=== PATIENT | female | born 1965 | race Caucasian/White ===

== ENCOUNTER 2018-08-14 23:22 | Inpatient (IN) | payer OTHER, MEDICAID ==
[~2018-08-14] VITALS: Ht 165.1 cm; Wt 155.2 kg
[2018-08-14 23:37] VITALS: Ht 165.1 cm; Wt 155.2 kg
[2018-08-15 01:09] LABS: BASOPHIL % 0.5 % (0-2); PLATELET COUNT 209 x10^3mcL (130-400); RED CELL DISTRIBUTION WIDTH 13.1 % (11.5-14.5)
[2018-08-15 01:14] LABS: CALCIUM 9.9 mg/dL (8.5-10.1); CARBON DIOXIDE 24.9 mmol/L (21-32); CREATININE SERUM 1.6 mg/dL (0.6-1.0); POTASSIUM SERUM 3.7 mmol/L (3.5-5.1)
[2018-08-15 01:20] LABS: BILIRUBIN TOTAL 0.26 mg/dL (0.20-1.00); TOTAL PROTEIN, SERUM 7.9 g/dL (6.4-8.2)
[2018-08-15 01:24] LABS: ALBUMIN 3.3 g/dL (3.4-5.0)
[2018-08-15] MEDS ORDERED: HYDROCHLOROTH12.5 M2 (02:44)
[2018-08-15] MEDS ORDERED: TOPROL XL25 MG (02:44)
[2018-08-15] MEDS ORDERED: LIPI10 (02:44)
[2018-08-15] MEDS ORDERED: LISINOPRIL2.5 MG (02:44)
[2018-08-15] MEDS ORDERED: ATENOLOL25 MG PO (02:44)
[2018-08-15] MEDS ORDERED: GABAPENTIN100 M2 (02:45)
[2018-08-15 03:54] VITALS: BP 103/53
[2018-08-15 04:33] LABS: CHOLESTEROL/HDL RATIO 5.9
[2018-08-15 04:36] LABS: FREE T4 0.95 ng/dL (0.76-1.46); FREE THYROXINE INDEX 2.5 ug/dL (1.4-4.5); T4(THYROXINE) 7.6 ug/dL (4.7-13.3)
[2018-08-15 04:46] LABS: T3 TOTAL 1.11 ng/mL
[2018-08-15 08:36] LABS: CALCIUM 9.8 mg/dL (8.5-10.1); CARBON DIOXIDE 24.1 mmol/L (21-32); CREATININE SERUM 2.1 mg/dL (0.6-1.0); MAGNESIUM 2.2 mg/dL (1.8-2.4); PHOSPHOROUS 4.6 mg/dL (2.5-4.9); POTASSIUM SERUM 3.7 mmol/L (3.5-5.1)
[2018-08-15 09:27] LABS: BASOPHIL % 0.3 % (0-2); PLATELET COUNT 196 x10^3mcL (130-400); RED CELL DISTRIBUTION WIDTH 13.3 % (11.5-14.5)
[2018-08-15 09:56] VITALS: BP 109/59
[2018-08-15 10:05] LABS: BILIRUBIN TOTAL 0.26 mg/dL (0.20-1.00); CALCIUM 9.1 mg/dL (8.5-10.1); CARBON DIOXIDE 22.1 mmol/L (21-32); CREATININE SERUM 2.1 mg/dL (0.6-1.0); POTASSIUM SERUM 4.4 mmol/L (3.5-5.1); TOTAL PROTEIN, SERUM 7.1 g/dL (6.4-8.2)
[2018-08-15 18:25] VITALS: BP 109/62
[2018-08-15 21:36] VITALS: BP 99/62
[2018-08-16 04:20] LABS: microscopic required? NO
[2018-08-16 04:27] LABS: UA SPECIFIC GRAVITY >=1.030 (1.005-1.035); urine erythrocyte NEGATIVE (NEGATIVE)
[2018-08-16 04:37] LABS: AMPHETAMINE QUAL UR NONE DETECTED (See below)
[2018-08-16 06:02] VITALS: BP 105/55
[2018-08-16 06:04] VITALS: BP 105/55
[2018-08-16 06:23] LABS: BASOPHIL % 0.9 % (0-2); PLATELET COUNT 187 x10^3mcL (130-400); RED CELL DISTRIBUTION WIDTH 13.3 % (11.5-14.5)
[2018-08-16 06:31] LABS: CALCIUM 9.1 mg/dL (8.5-10.1); CARBON DIOXIDE 22.6 mmol/L (21-32); CREATININE SERUM 2.3 mg/dL (0.6-1.0); MAGNESIUM 2.1 mg/dL (1.8-2.4); PHOSPHOROUS 4.1 mg/dL (2.5-4.9); POTASSIUM SERUM 3.6 mmol/L (3.5-5.1)
[2018-08-16 08:46] VITALS: BP 97/64
[2018-08-16 12:29] VITALS: BP 102/60
[2018-08-16 16:58] VITALS: BP 97/53
[2018-08-16 17:44] VITALS: BP 97/53
== END 2018-08-16 18:24 | disposition home or self-care (01) | DRG 205 ==
LOC: ED 23:22 → DU 08-15 02:30 → MU 08-16 14:28
PROVIDERS: Emergency Medicine; Internal Medicine; Internal Medicine Nephrology; ADMIT Internal Medicine
DX: M94.0 Chondrocostal junction syndrome [Tietze] (principal); N17.0 Acute kidney failure with tubular necrosis; Z68.43 Body mass index [BMI] 50.0-59.9, adult; E44.0 Moderate protein-calorie malnutrition; I12.9 Hypertensive chronic kidney disease with stage 1 through stage 4 chronic kidney disease, or unspecified chronic kidney disease; N18.3 Chronic kidney disease, stage 3 (moderate); F32.9 Major depressive disorder, single episode, unspecified; E78.5 Hyperlipidemia, unspecified; M79.7 Fibromyalgia; E66.01 Morbid (severe) obesity due to excess calories; E02 Subclinical iodine-deficiency hypothyroidism; R73.03 Prediabetes
CPT/HCPCS: 78598; 83880; 84439; 85378; A9540; G0378; J1200; J1644; J1885; J2270; J2405; J2765; J7030; Q0092; Q0163